=== PATIENT | female | born 1985 | race African-American/Black ===

== ENCOUNTER 2018-09-16 14:25 | Emergency (ER) | payer SELFPAY ==
--- NOTE | 2018-09-16 15:11 | RAD ---
EXAM: Portable chest PROVIDED CLINICAL HISTORY: Fever COMPARISON: None FINDINGS: Cardiac and mediastinal silhouette is within normal limits. No focal consolidation, pleural fluid or pneumothorax evident. IMPRESSION: No evidence for an acute cardiopulmonary process.
== END 2018-09-16 15:35 | disposition home or self-care (01) ==
LOC: ERS 14:25
DX: J20.9 Acute bronchitis, unspecified (principal); F17.210 Nicotine dependence, cigarettes, uncomplicated; E66.9 Obesity, unspecified
CPT/HCPCS: 71045

== ENCOUNTER 2018-09-27 15:36 | Emergency (ER) | payer SELFPAY | END 2018-09-27 16:47 | disposition home or self-care (01) | LOC: ERS 15:36 | DX: J20.9 Acute bronchitis, unspecified (principal); E66.9 Obesity, unspecified; F17.210 Nicotine dependence, cigarettes, uncomplicated | CPT/HCPCS: 99283 ==